=== PATIENT | male | born 1995 | race Two or more races ===

== ENCOUNTER 2018-07-25 11:32 | Inpatient (IN) | payer MEDICAID ==
[~2018-07-25] VITALS: Ht 195.6 cm; Wt 79.0 kg
[2018-07-25 13:32] VITALS: BP 132/78
[2018-07-25] MEDS ORDERED: ARIP10TA8 PO (13:48)
[2018-07-25] MEDS ORDERED: GABA-531 PO (13:48)
[2018-07-25] MEDS ORDERED: TRAZ-219 PO (13:48)
[2018-07-25] MEDS ORDERED: OLAN10TA3 PO (13:48)
[2018-07-25] MEDS ORDERED: FLUO-191 PO (13:48)
[2018-07-25] MEDS ORDERED: TUBERCULIN, PURIFIED PROTEIN DERIVATIVE 5 TU/0.1 ML SYRINGE ID ONE (14:30)
[2018-07-25] MEDS ORDERED: HydrOXYzine PAMOATE 50 MG CAPSULE PO PRN (14:30)
[2018-07-25] MEDS ORDERED: OLANZapine 5 MG RAPDIS TABLET PO PRN (14:30)
[2018-07-25] MEDS ORDERED: LOPERAMIDE HCL 2 MG CAPSULE PO PRN (14:30)
[2018-07-25] MEDS ORDERED: PROMETHAZINE HCL 25 MG TABLET PO PRN (14:30)
[2018-07-25] MEDS ORDERED: MAGNESIUM HYDROXIDE SUSPENSION 30 ML UDCUP PO PRN (14:30)
[2018-07-25] MEDS ORDERED: MAG HYDROX/AL HYDROX/SIMETH ES 30 ML SUSPENSION UDCUP PO PRN (14:30)
[2018-07-25] MEDS ORDERED: GuaiFENesin/D-METHORPHAN [SUGAR-FREE] 200-20MG/10 ML SYRUP UDCUP PO PRN (14:30)
[2018-07-25] MEDS: GABAPENTIN 300 MG CAPSULE PO SCH ×2 (15:22→16:26)
[2018-07-25 16:22] VITALS: BP 123/65
[2018-07-25] MEDS: THIAMINE HCL 100 MG TABLET PO SCH (16:26)
[2018-07-25 16:30] VITALS: BP 117/65
[2018-07-25] MEDS ORDERED: OLANZapine 10 MG RAPDIS TABLET PO SCH (21:00)
[2018-07-25] MEDS ORDERED: TraZODone HCL 100 MG TABLET PO SCH (21:00)
[2018-07-26 03:15] VITALS: BP 122/70
[2018-07-26 08:29] VITALS: BP 109/58
[2018-07-26 08:45] LABS: BASOPHILS % (AUTO) 0.6 % (0.0-2.0); EOSINOPHILS % (AUTO) 3.9 % (1.0-6.0); HEMATOCRIT 43.1 % (41-53); HEMOGLOBIN 14.1 g/dL (13.5-17.5); LYMPHOCYTES # (AUTO) 2.8 K/uL (1.0-4.8); LYMPHOCYTES % (AUTO) 42.4 % (22.0-44.0); MEAN CORPUSCULAR HEMOGLOBIN 29.5 pg (26.0-34.0); MEAN CORPUSCULAR HGB CONC 32.7 G/dL (31.0-37.0); MEAN CORPUSCULAR VOLUME 90 fL (80-100); MONOCYTES # (AUTO) 0.6 K/uL (0.1-1.0); MONOCYTES % (AUTO) 9.4 % (2.0-9.0); NEUTROPHILS # (AUTO) 2.9 K/uL (1.8-7.7); NEUTROPHILS % (AUTO) 43.7 % (40.0-70.0); PLATELET COUNT (AUTO) 224 K/uL (150-450); RED BLOOD CELL COUNT(AUTO) 4.78 MIL/uL (4.50-5.90); RED CELL DISTRIBUTION WIDTH 13.4 % (11.5-14.5)
[2018-07-26] MEDS: FOLIC ACID 1 MG TABLET PO SCH (09:04)
[2018-07-26] MEDS: GABAPENTIN 300 MG CAPSULE PO SCH ×4 (09:04→20:42)
[2018-07-26] MEDS: THIAMINE HCL 100 MG TABLET PO SCH ×2 (09:04→16:10)
[2018-07-26] MEDS: MULTIVITAMINS WITH MINERALS, THERAPEUTIC TABLET PO SCH (09:04)
[2018-07-26 09:16] LABS: HEMOGLOBIN A1C 5.8 % (4.5-6.2)
[2018-07-26 09:37] LABS: ALANINE AMINOTRANSFERASE 21 U/L (12-78); ALBUMIN 3.7 g/dL (3.4-5.0); ALKALINE PHOSPHATASE 73 U/L (46-116); ANION GAP 9 mmol/L (8-16); ASPARTATE AMINOTRANSFERASE 20 U/L (15-37); BILIRUBIN,TOTAL 0.3 mg/dL (0.1-1.0); CALCIUM, TOTAL 9.2 mg/dL (8.8-10.5); CARBON DIOXIDE 28 mmol/L (22-29); CHLORIDE 105 mmol/L (98-107); CHOL/HDL RATIO 2.9 (4.2-7.3); CHOLESTEROL 126 mg/dL (131-200); CREATININE 0.65 mg/dL (0.60-1.30); FREE T4 (FREE THYROXINE) 0.96 ng/dL (0.76-1.46); GLOMERULAR FILTR. RATE CALC > 60 mL/min (>60); GLUCOSE,RANDOM 90 mg/dL (70-110); HDL CHOLESTEROL 44 mg/dL (40-60); LDL CHOL (CALC.) 73 mg/dL (0-130); POTASSIUM 4.6 mmol/L (3.5-5.1); SODIUM SERUM 142 mmol/L (136-145); THYROID STIMULATING HORMONE 1.75 uIU/mL (0.36-3.74); TOTAL PROTEIN, SERUM 6.7 g/dL (6.4-8.2); TRIGLYCERIDES 46 mg/dL (15-150); UREA NITROGEN, BLOOD 12 mg/dL (7-18)
[2018-07-26 16:21] VITALS: BP 116/62
[2018-07-26] MEDS ORDERED: GABAPENTIN 300 MG CAPSULE PO PRN (17:15)
[2018-07-26] MEDS ORDERED: PALIPERIDONE PALMITATE 234 MG/1.5 ML SYRINGE IM ONE (17:15)
[2018-07-26] MEDS ORDERED: PALIPERIDONE 3 MG ER TABLET PO PRN (17:15)
[2018-07-26] MEDS: PALIPERIDONE 3 MG ER TABLET PO SCH (20:37)
[2018-07-27 05:45] VITALS: BP 115/55
[2018-07-27] MEDS: THIAMINE HCL 100 MG TABLET PO SCH ×2 (08:11→17:26)
[2018-07-27] MEDS: FOLIC ACID 1 MG TABLET PO SCH (08:11)
[2018-07-27] MEDS: GABAPENTIN 300 MG CAPSULE PO SCH ×4 (08:11→20:41)
[2018-07-27] MEDS: MULTIVITAMINS WITH MINERALS, THERAPEUTIC TABLET PO SCH (08:11)
[2018-07-27] MEDS: NICOTINE POLACRILEX 2 MG LOZENGE PO PRN ×2 (08:12→12:51)
[2018-07-27 09:06] VITALS: BP 123/83
[2018-07-27 16:46] VITALS: BP 129/79
[2018-07-27] MEDS: ZOLPIDEM TARTRATE 5 MG TABLET PO PRN (20:41)
[2018-07-27] MEDS: PALIPERIDONE 3 MG ER TABLET PO SCH (20:41)
[2018-07-28 00:24] VITALS: BP 107/67
[2018-07-28 08:14] VITALS: BP 121/74
[2018-07-28] MEDS: FOLIC ACID 1 MG TABLET PO SCH (08:27)
[2018-07-28] MEDS: MULTIVITAMINS WITH MINERALS, THERAPEUTIC TABLET PO SCH (08:27)
[2018-07-28] MEDS: THIAMINE HCL 100 MG TABLET PO SCH ×2 (08:27→16:48)
[2018-07-28] MEDS: GABAPENTIN 300 MG CAPSULE PO SCH (08:27)
[2018-07-28] MEDS: NICOTINE POLACRILEX 2 MG LOZENGE PO PRN ×2 (08:39→13:12)
[2018-07-28] MEDS: ACETAMINOPHEN 325 MG TABLET PO PRN ×2 (09:13→17:17)
[2018-07-28] MEDS: GABAPENTIN 400 MG CAPSULE PO SCH ×3 (12:45→20:09)
[2018-07-28 16:55] VITALS: BP 102/69
[2018-07-28] MEDS: ZOLPIDEM TARTRATE 5 MG TABLET PO PRN (20:34)
[2018-07-29 04:13] VITALS: BP 127/64
[2018-07-29] MEDS: GABAPENTIN 400 MG CAPSULE PO SCH (08:27)
[2018-07-29] MEDS: FOLIC ACID 1 MG TABLET PO SCH (08:27)
[2018-07-29] MEDS: MULTIVITAMINS WITH MINERALS, THERAPEUTIC TABLET PO SCH (08:27)
[2018-07-29] MEDS: THIAMINE HCL 100 MG TABLET PO SCH (08:28)
[2018-07-29] MEDS: NICOTINE POLACRILEX 2 MG LOZENGE PO PRN (08:32)
[2018-07-29] MEDS ORDERED: PALIPERIDONE PALMITATE 117 MG/0.75 ML SYRINGE IM ONE (09:00)
[2018-07-29 09:06] VITALS: BP 125/70
[2018-07-29] MEDS ORDERED: GABA-533 PO (10:03)
[2018-07-29] MEDS: ACETAMINOPHEN 325 MG TABLET PO PRN (10:18)
[2018-07-30] MEDS ORDERED: PALIPERIDONE PALMITATE 156 MG/ML SYRINGE IM ONE (09:00)
[2018-08-23] MEDS ORDERED: PALIPERIDONE PALMITATE 117 MG/0.75 ML SYRINGE IM SCH (09:00)
== END 2018-07-29 12:00 | disposition home or self-care (01) | DRG 750 ==
LOC: B2S 14:01
PROVIDERS: ADMIT Psychiatry & Neurology Psychiatry; ATTEND Psychiatry & Neurology Psychiatry
DX: F20.9 Schizophrenia, unspecified (principal); Z91.19 Patient's noncompliance with other medical treatment and regimen; F17.210 Nicotine dependence, cigarettes, uncomplicated; Z79.899 Other long term (current) drug therapy
CPT/HCPCS: 83036; 84439; 84443